=== PATIENT | male | born 1990 | race Two or more races ===

== ENCOUNTER 2016-12-05 15:43 | Emergency (ER) | payer SELFPAY ==
[~2016-12-05] VITALS: Ht 162.6 cm; Wt 93.0 kg
[2016-12-05 16:10] VITALS: BP 131/78
[2016-12-05 16:54] LABS: ABG PCO2 39.5 mmHg (35.0-45.0); ABG PH 7.396 (7.350-7.450); ABG PO2 71.6 mmHg (75.0-100.0); AaDO2 30.8 mmHg; COHb 0.2 % (0.5-1.5); MetHb 0.3 % (0.0-1.5); O2Hb 93.5 % (94.0-97.0); SITE, ABG Right Radial; VENT MODE, BG RA
== END 2016-12-05 18:16 | disposition home or self-care (01) ==
LOC: ER 15:48
DX: T59.91XA Toxic effect of unspecified gases, fumes and vapors, accidental (unintentional), initial encounter (principal); W93.12XA Inhalation of liquid air, initial encounter; Y93.89 Activity, other specified; Y92.89 Other specified places as the place of occurrence of the external cause; Y99.8 Other external cause status
CPT/HCPCS: 36600; 99283; A4606; Q0162; Z7610

== ENCOUNTER 2018-10-12 18:02 | Emergency (ER) | payer OTHER ==
[~2018-10-12] VITALS: Ht 165.1 cm; Wt 99.8 kg
[2018-10-12 18:08] VITALS: BP 136/77
== END 2018-10-12 19:24 | disposition home or self-care (01) ==
LOC: ER 18:07
DX: M25.562 Pain in left knee (principal); M25.561 Pain in right knee; F41.9 Anxiety disorder, unspecified; F10.10 Alcohol abuse, uncomplicated; Y90.9 Presence of alcohol in blood, level not specified
CPT/HCPCS: 73564-TC

== ENCOUNTER 2018-11-23 17:43 | Emergency (ER) | payer OTHER ==
[~2018-11-23] VITALS: Ht 165.1 cm; Wt 48.1 kg
[2018-11-23 17:53] VITALS: BP 122/78
== END 2018-11-23 18:41 | disposition home or self-care (01) ==
LOC: ER 17:45
DX: M25.562 Pain in left knee (principal); F41.9 Anxiety disorder, unspecified

== ENCOUNTER 2019-12-10 19:23 | Emergency (ER) | payer OTHER ==
[~2019-12-10] VITALS: Ht 165.1 cm; Wt 106.1 kg
[2019-12-10 19:36] VITALS: BP 158/96
--- NOTE | 2019-12-10 22:58 | NUR ---
Patient discharged to home in stable condition. Written and verbal after care instructions given. Patient verbalizes understanding of instruction.
== END 2019-12-10 23:03 | disposition home or self-care (01) ==
LOC: ER 19:31
DX: H66.92 Otitis media, unspecified, left ear (principal); G44.209 Tension-type headache, unspecified, not intractable

== ENCOUNTER 2021-07-14 20:35 | Emergency (ER) | payer OTHER ==
[~2021-07-14] VITALS: Ht 165.1 cm; Wt 111.6 kg
--- NOTE | 2021-07-14 21:14 | NUR ---
pt5 a/o x 3 c/o cough, vomiting anf bodyaches x 3 days
[2021-07-14] MEDS ORDERED: OSEL75CA PO (21:17)
[2021-07-14] MEDS ORDERED: ONDA4TAB5 PO (21:17)
[2021-07-14] MEDS ORDERED: IBUP-1957 PO (21:17)
[2021-07-14 21:27] VITALS: BP 139/88
--- NOTE | 2021-07-14 21:27 | NUR ---
pt discharged in satble condition
== END 2021-07-14 21:28 | disposition home or self-care (01) ==
LOC: ER 20:39
DX: B34.9 Viral infection, unspecified (principal); F41.9 Anxiety disorder, unspecified

== ENCOUNTER 2022-04-02 12:52 | Emergency (ER) | payer OTHER ==
[~2022-04-02] VITALS: Ht 162.6 cm; Wt 108.9 kg
[~2022-04-02 12:52] MED LIST: IBUP-1957 PO; ONDA4TAB5 PO; OSEL75CA PO
--- NOTE | 2022-04-02 13:10 | NUR ---
"I have a FRIAS/Dizzy/Nausea/vomitin-Dont feel good." +Alcohol Abuse
--- NOTE | 2022-04-02 13:13 | NUR ---
DR VERDUZCO AT BED SIDE FOR EVAL.
[2022-04-02] MEDS ORDERED: CHLORDIAZEPOXIDE HCL 25 MG CAPSULE PO ONE (13:30)
--- NOTE | 2022-04-02 13:31 | NUR ---
ESTABLISHED SALINE LOCK AT LEFT AC G20. BLOOD DRAWN AND SENT TO LAB.
[2022-04-02] MEDS ORDERED: CHLORDIAZEPOXIDE HCL 25 MG CAPSULE ONE (13:33)
[2022-04-02 13:56] LABS: BASOPHILS % (AUTO) 0.5 % (0.0-2.0); EOSINOPHILS % (AUTO) 6.1 % (0.0-6.0); HEMATOCRIT 37 % (39-51); HEMOGLOBIN 12.2 g/dL (13.5-17.5); LYMPHOCYTES # (AUTO) 2.6 K/uL (0.8-4.8); LYMPHOCYTES % (AUTO) 39.7 % (20.0-44.0); MEAN CORPUSCULAR HGB CONC 33 g/dl (31.0-36.0); MEAN CORPUSCULAR VOLUME 82 fL (80-96); MONOCYTES # (AUTO) 0.5 K/uL (0.1-1.30); MONOCYTES % (AUTO) 6.9 % (2.0-12.0); NEUTROPHILS # (AUTO) 3.1 K/uL (1.8-8.9); NEUTROPHILS % (AUTO) 46.8 % (43.0-81.0); PLATELET COUNT (AUTO) 204 K/uL (150-450); WHITE BLOOD COUNT (AUTO) 6.5 K/uL (4.3-11.0)
[2022-04-02 14:27] LABS: CALCIUM, SERUM 8.2 mg/dL (8.5-10.1); CARBON DIOXIDE 26 mmol/L (21-32); CHLORIDE 104 mmol/L (98-107); CREATININE 0.7 mg/dL (0.6-1.3); GLUCOSE 261 mg/dL (74-106); POTASSIUM 3.1 mmol/L (3.5-5.1); SODIUM SERUM 138 mmol/L (136-145); UREA NITROGEN, BLOOD 3 mg/dL (7-18)
[2022-04-02 14:39] LABS: ALANINE AMINOTRANSFERASE 150 U/L (12-78); ALBUMIN 3.5 g/dL (3.4-5.0); ALKALINE PHOSPHATASE 188 U/L (46-116); ASPARTATE AMINOTRANSFERASE 192 U/L (15-37); BILIRUBIN,DIRECT 0.2 mg/dL (0.0-0.2); BILIRUBIN,TOTAL 0.3 mg/dL (0.2-1.0); TOTAL PROTEIN, SERUM 8.5 g/dL (6.4-8.2)
[2022-04-02] MEDS ORDERED: METFORMIN 500 MG TABLET PO ONE (15:00)
[2022-04-02] MEDS ORDERED: IV NS 0.9% 1,000 ML IV ONE (15:00)
[2022-04-02] MEDS ORDERED: METF-440 PO (15:02)
[2022-04-02] MEDS ORDERED: METFORMIN 500 MG TABLET ONE (15:04)
--- NOTE | 2022-04-02 16:00 | NUR ---
Patient discharged to home in stable condition. Written and verbal after care instructions given. Patient verbalizes understanding of instruction.
[2022-04-02 16:29] VITALS: BP 135/75
== END 2022-04-02 16:00 | disposition home or self-care (01) ==
LOC: ER 12:55
DX: R42 Dizziness and giddiness (principal); F41.9 Anxiety disorder, unspecified; R73.9 Hyperglycemia, unspecified; F10.10 Alcohol abuse, uncomplicated; Z79.899 Other long term (current) drug therapy; Y90.9 Presence of alcohol in blood, level not specified
CPT/HCPCS: 99284; 96360; 93005; 85025; 80048; 80076; 83735; 36415; 84484; 85730; 83880; 82962; J7030

== ENCOUNTER 2023-10-28 22:19 | Emergency (ER) | payer OTHER ==
[~2023-10-28] VITALS: Ht 165.1 cm; Wt 95.3 kg
[~2023-10-28 22:19] MED LIST changes: +METF-440 PO
[2023-10-28] MEDS: IV NS 0.9% 1,000 ML BAG IV ONE ×2 (23:11)
[2023-10-28 23:13] LABS: SITE, VBG Other; VBG BASE EXCESS 2.2 mmol/L (-2.0-3.0); VBG COHb 0.3 % (0.5-1.5); VBG HCO3 27.2 mmol/L (22.0-29.0); VBG MetHb 0.2 % (0.5-1.5); VBG O2Hb 61.6 % (0-79); VBG OXYGEN SATURATION 61.9 % (60.0-85.0); VBG PCO2 43.3 mmHg (38.0-54.0); VBG PH 7.416 (7.320-7.430); VBG PO2 28.7 mmHg (23.0-48.0); VENT MODE, VBG room air
[2023-10-29 00:06] LABS: BASOPHILS # (AUTO) 0.1 K/uL (0.0-0.2); BASOPHILS % (AUTO) 0.6 % (0.0-2.0); EOSINOPHILS # (AUTO) 0.1 K/uL (0.0-0.7); EOSINOPHILS % (AUTO) 1.2 % (0.0-6.0); HEMATOCRIT 40 % (39-51); HEMOGLOBIN 13.4 g/dL (13.5-17.5); LYMPHOCYTES # (AUTO) 4.2 K/uL (0.8-4.8); MEAN CORPUSCULAR HEMOGLOBIN 29 PG (26.0-33.0); MEAN CORPUSCULAR HGB CONC 34 g/dl (31.0-36.0); MEAN CORPUSCULAR VOLUME 86 fL (80-96); MONOCYTES # (AUTO) 0.7 K/uL (0.1-1.30); MONOCYTES % (AUTO) 6.3 % (2.0-12.0); NEUTROPHILS # (AUTO) 6.3 K/uL (1.8-8.9); NEUTROPHILS % (AUTO) 54.9 % (43.0-81.0); PLATELET COUNT (AUTO) 204 K/uL (150-450); RED BLOOD CELL COUNT(AUTO) 4.58 MIL/uL (4.5-6.0); RED CELL DISTRIBUTION WIDTH 14.1 % (11.5-15.0); WHITE BLOOD COUNT (AUTO) 11.4 K/uL (4.3-11.0)
[2023-10-29 00:24] LABS: CALCIUM, SERUM 8.9 mg/dL (8.5-10.1); CREATININE 0.9 mg/dL (0.6-1.3); POTASSIUM 3.5 mmol/L (3.5-5.1)
[2023-10-29 00:27] LABS: ALBUMIN 3.2 g/dL (3.4-5.0); BILIRUBIN,DIRECT 0.1 mg/dL (0.0-0.2); BILIRUBIN,TOTAL 0.5 mg/dL (0.2-1.0); TOTAL PROTEIN, SERUM 8.2 g/dL (6.4-8.2)
[2023-10-29] MEDS ORDERED: INSULIN REGULAR, HUMAN 100 UNIT/ML 10 ML VIAL ONE (00:27)
[2023-10-29 00:31] LABS: APPEARANCE,URINE CLEAR (CLEAR); BILIRUBIN,URINE NEGATIVE (NEGATIVE); BLOOD, URINE NEGATIVE Ery/uL (NEGATIVE); COLOR,URINE YELLOW (YELLOW); KETONES,URINE NEGATIVE (NEGATIVE); LEUKOCYTE ESTERASE ,URINE NEGATIVE (NEGATIVE); NITRITE, URINE NEGATIVE (NEGATIVE); PROTEIN,URINE NEGATIVE (NEGATIVE); UGLUCOSE 3+ mg/dL (NEGATIVE); UROBILINOGEN,URINE 0.2 EU/dL (0.2)
[2023-10-29 00:33] LABS: ADD URINE CULTURE NO; BACTERIA,URINE Rare /HPF (None Seen); RBC,URINE 0-2 /HPF (0-2); SQUAMOUS EPITHELIAL CELL,UR Few /HPF (None Seen); WBC,URINE 0-2 /HPF (0-3)
[2023-10-29] MEDS: INSULIN REGULAR, HUMAN 100 UNIT/ML 10 ML VIAL IV ONE (00:33)
[2023-10-29] MEDS: IV NS 0.9% 1,000 ML BAG IV ONE (01:00)
[2023-10-29] MEDS ORDERED: METF-442 PO (02:01)
[2023-10-29 02:23] VITALS: BP 144/89; TEMP 97.6; O2SAT 100
== END 2023-10-29 02:23 | disposition home or self-care (01) ==
LOC: ER 22:21
DX: E11.65 Type 2 diabetes mellitus with hyperglycemia (principal); R63.1 Polydipsia; F10.10 Alcohol abuse, uncomplicated; R35.89 Other polyuria; F41.9 Anxiety disorder, unspecified; F19.10 Other psychoactive substance abuse, uncomplicated; Y90.2 Blood alcohol level of 40-59 mg/100 ml
CPT/HCPCS: 99285; 96361 ×2; 93005; 82803 ×2; 71045; 85025; 80048; 83690; 80076; 81001; 36415; 82962 ×2; 80320; 96374; J7030 ×2; J1815; G0480